=== PATIENT | female | born 1945 | race Caucasian/White ===

== ENCOUNTER → 2020-04-30 | Day surgery (SDC) | payer OTHER | END | disposition home or self-care (01) | LOC: FMAMMOTONE 11:21 | PROVIDERS: ATTEND Internal Medicine | PROC: 0H9U3ZX Drainage of Left Breast, Percutaneous Approach, Diagnostic (ICD-10-PCS; principal; 2020-04-30) | DX: D05.12 Intraductal carcinoma in situ of left breast (principal) | CPT/HCPCS: 19081; 76098-TC-FY; 87899; 88305-TC; 88342-TC; A4648 ==

== ENCOUNTER 2022-12-16 11:23 | Inpatient (IN) | payer OTHER ==
[2022-12-16 12:30] LABS: BASO % 0.6 % (0-2.0); EOS % 0.8 % (0-4.5); HEMATOCRIT 41.6 % (32.4-45.2); HEMOGLOBIN 13.3 GM/dL (10.7-15.3); LYMPH % 15.5 % (8-40); MCH 28.9 pg (25.7-33.7); MEAN CELL VOLUME 90.4 fl (80-96); MEAN PLT VOLUME 8.7 fl (7.5-11.1); MONO % 13.9 % (3.8-10.2); NEUT % 69.2 % (42.8-82.8); PLATELET COUNT 229 10^3/uL (134-434); RDW 14.7 % (11.6-15.6)
[2022-12-16 12:39] LABS: EPI CELLS 10 /uL (0-25.1); HYALINE CASTS 1 /uL (0-3.1); URINE APPEARANCE CLOUDY; URINE BACTERIA >9,000 /uL (0-1359); URINE BILIRUBIN NEGATIVE (NEGATIVE); URINE COLOR YELLOW; URINE GLUCOSE (UA) NEGATIVE (NEGATIVE); URINE KETONE NEGATIVE (NEGATIVE); URINE LEUK ESTERASE 3+ (NEGATIVE); URINE NITRITE POSITIVE (NEGATIVE); URINE PROTEIN NEGATIVE (NEGATIVE); URINE RBC 13 /uL (0-23.9); URINE UROBILINOGEN 0.2 mg/dL (0.2-1.0); URINE WBC 967 /uL (0-25.8)
[2022-12-16 12:40] LABS: INR 1.08 (0.83-1.09); PROTHROMBIN TIME (PATIENT) 12.5 SEC (9.7-13.0)
[2022-12-16 12:43] LABS: ACTIVATED PTT 29.9 SECONDS (25.2-36.5)
[2022-12-16 13:03] LABS: POTASSIUM 4.7 mmol/L (3.5-5.1)
[2022-12-16 13:05] LABS: CALCIUM 9.9 mg/dL (8.5-10.1)
[2022-12-16 13:06] LABS: ALBUMIN 3.4 g/dl (3.4-5.0); BLOOD UREA NITROGEN 18.9 mg/dL (7-18); MAGNESIUM 2.2 mg/dL (1.8-2.4)
[2022-12-16 13:09] LABS: CREATININE 0.9 mg/dL (0.55-1.3)
[2022-12-16 13:10] LABS: BILIRUBIN,TOTAL 0.5 mg/dL (0.2-1); TOT PROT 6.7 g/dl (6.4-8.2)
[2022-12-16] MEDS ORDERED: CEFTRIAXONE 1 GM/50 ML BAG ONE (14:02)
[2022-12-16] MEDS ORDERED: SODIUM CHLORIDE 500 ML IV STA (14:52)
[2022-12-16] MEDS: OXYBUTYNIN CHLORIDE 5 MG TABLET PO SCH (21:49)
[2022-12-17] MEDS: OXYBUTYNIN CHLORIDE 5 MG TABLET PO SCH ×3 (06:48→21:10)
[2022-12-17 07:26] LABS: BASO % 0.5 % (0-2.0); EOS % 1.6 % (0-4.5); HEMATOCRIT 39.6 % (32.4-45.2); HEMOGLOBIN 12.7 GM/dL (10.7-15.3); LYMPH % 15.2 % (8-40); MCHC 32.1 g/dl (32.0-36.0); MEAN CELL VOLUME 90.4 fl (80-96); MEAN PLT VOLUME 9.2 fl (7.5-11.1); MONO % 11.1 % (3.8-10.2); NEUT % 71.6 % (42.8-82.8); PLATELET COUNT 223 10^3/uL (134-434); RBC 4.38 M/mm3 (3.60-5.2); RDW 14.8 % (11.6-15.6); WHITE BLOOD COUNT 6.4 K/mm3 (4.0-10.0)
[2022-12-17 08:00] LABS: ALBUMIN 2.9 g/dl (3.4-5.0); BLOOD UREA NITROGEN 17.1 mg/dL (7-18); CALCIUM 8.8 mg/dL (8.5-10.1)
[2022-12-17 08:03] LABS: CREATININE 0.6 mg/dL (0.55-1.3)
[2022-12-17 08:05] LABS: BILIRUBIN,TOTAL 0.4 mg/dL (0.2-1)
[2022-12-17 08:24] LABS: CHOLESTEROL 184 mg/dL (50-200)
[2022-12-17 08:25] LABS: LDL CHOLESTEROL (ONLY SJRH) 126 mg/dL (5-100)
[2022-12-17 08:27] LABS: HDL CHOLESTEROL 53 mg/dL (40-60)
[2022-12-17] MEDS: CEFTRIAXONE 1 GM in DEXTROSE 5%-WATER - 50 ML IVPB SCH (10:09)
[2022-12-17] MEDS: ENOXAPARIN NA (PORCINE) 40 MG/0.4 ML DISP.SYRIN SQ SCH (10:09)
[2022-12-17] MEDS: ATORVASTATIN CA 10 MG TABLET (FP) PO SCH (10:09)
[2022-12-17] MEDS: risperiDONE 1 MG TABLET PO SCH (10:09)
[2022-12-18] MEDS: OXYBUTYNIN CHLORIDE 5 MG TABLET PO SCH ×3 (06:27→21:45)
[2022-12-18] MEDS: risperiDONE 1 MG TABLET PO SCH (09:32)
[2022-12-18] MEDS: ATORVASTATIN CA 10 MG TABLET (FP) PO SCH (09:32)
[2022-12-18] MEDS: CEFTRIAXONE 1 GM in DEXTROSE 5%-WATER - 50 ML IVPB SCH (09:32)
[2022-12-18] MEDS: ENOXAPARIN NA (PORCINE) 40 MG/0.4 ML DISP.SYRIN SQ SCH (09:32)
[2022-12-19] MEDS: OXYBUTYNIN CHLORIDE 5 MG TABLET PO SCH ×3 (06:04→21:34)
[2022-12-19] MEDS: ATORVASTATIN CA 10 MG TABLET (FP) PO SCH (09:27)
[2022-12-19] MEDS: risperiDONE 1 MG TABLET PO SCH (09:27)
[2022-12-19] MEDS: ENOXAPARIN NA (PORCINE) 40 MG/0.4 ML DISP.SYRIN SQ SCH (09:27)
[2022-12-19] MEDS: CEFTRIAXONE 1 GM in DEXTROSE 5%-WATER - 50 ML IVPB SCH (09:27)
[2022-12-20] MEDS: SENNOSIDES 8.6MG TABLET (FP) PO SCH ×2 (01:51→21:45)
[2022-12-20] MEDS: OXYBUTYNIN CHLORIDE 5 MG TABLET PO SCH ×3 (06:18→21:45)
[2022-12-20 07:11] LABS: BASO % 0.7 % (0-2.0); EOS % 4.4 % (0-4.5); HEMATOCRIT 40.5 % (32.4-45.2); HEMOGLOBIN 13.1 GM/dL (10.7-15.3); LYMPH % 24.2 % (8-40); MCHC 32.4 g/dl (32.0-36.0); MEAN CELL VOLUME 89.8 fl (80-96); MEAN PLT VOLUME 8.7 fl (7.5-11.1); MONO % 7.7 % (3.8-10.2); PLATELET COUNT 226 10^3/uL (134-434); RBC 4.52 M/mm3 (3.60-5.2); RDW 13.9 % (11.6-15.6); WHITE BLOOD COUNT 6.7 K/mm3 (4.0-10.0)
[2022-12-20 07:36] LABS: POTASSIUM 3.9 mmol/L (3.5-5.1)
[2022-12-20 07:39] LABS: ALBUMIN 2.9 g/dl (3.4-5.0); BLOOD UREA NITROGEN 24.5 mg/dL (7-18); CALCIUM 9.1 mg/dL (8.5-10.1)
[2022-12-20 07:43] LABS: CREATININE 0.7 mg/dL (0.55-1.3)
[2022-12-20 07:44] LABS: BILIRUBIN,TOTAL 0.4 mg/dL (0.2-1); TOT PROT 6.2 g/dl (6.4-8.2)
[2022-12-20] MEDS: risperiDONE 1 MG TABLET PO SCH (09:09)
[2022-12-20] MEDS: ATORVASTATIN CA 10 MG TABLET (FP) PO SCH (09:09)
[2022-12-20] MEDS: POLYETHYLENE GLYCOL (HEALTHYLAX) 3350 17 GM PACKET PO SCH (09:10)
[2022-12-20] MEDS: ENOXAPARIN NA (PORCINE) 40 MG/0.4 ML DISP.SYRIN SQ SCH (09:10)
[2022-12-20] MEDS: CEFTRIAXONE 1 GM in DEXTROSE 5%-WATER - 50 ML IVPB SCH (09:10)
[2022-12-21] MEDS: OXYBUTYNIN CHLORIDE 5 MG TABLET PO SCH ×3 (06:43→23:38)
[2022-12-21] MEDS: CEFTRIAXONE 1 GM in DEXTROSE 5%-WATER - 50 ML IVPB SCH (09:22)
[2022-12-21] MEDS: ENOXAPARIN NA (PORCINE) 40 MG/0.4 ML DISP.SYRIN SQ SCH (09:23)
[2022-12-21] MEDS: ATORVASTATIN CA 10 MG TABLET (FP) PO SCH (09:23)
[2022-12-21] MEDS: POLYETHYLENE GLYCOL (HEALTHYLAX) 3350 17 GM PACKET PO SCH (09:24)
[2022-12-21] MEDS: risperiDONE 1 MG TABLET PO SCH (09:24)
[2022-12-21 21:29] VITALS: BMI 29.2
[2022-12-21] MEDS: SENNOSIDES 8.6MG TABLET (FP) PO SCH ×2 (23:37→23:52)
[2022-12-22] MEDS: OXYBUTYNIN CHLORIDE 5 MG TABLET PO SCH ×3 (07:37→21:33)
[2022-12-22 09:20] LABS: BASO % 0.6 % (0-2.0); HEMATOCRIT 39.7 % (32.4-45.2); LYMPH % 20.2 % (8-40); MCH 29.4 pg (25.7-33.7); MCHC 32.8 g/dl (32.0-36.0); MEAN CELL VOLUME 89.5 fl (80-96); MEAN PLT VOLUME 8.6 fl (7.5-11.1); MONO % 7.4 % (3.8-10.2); NEUT % 66.8 % (42.8-82.8); PLATELET COUNT 249 10^3/uL (134-434); RBC 4.44 M/mm3 (3.60-5.2); RDW 13.6 % (11.6-15.6); WHITE BLOOD COUNT 6.1 K/mm3 (4.0-10.0)
[2022-12-22 09:51] LABS: POTASSIUM 3.8 mmol/L (3.5-5.1)
[2022-12-22] MEDS: risperiDONE 1 MG TABLET PO SCH (09:57)
[2022-12-22] MEDS: ENOXAPARIN NA (PORCINE) 40 MG/0.4 ML DISP.SYRIN SQ SCH (09:57)
[2022-12-22] MEDS: ATORVASTATIN CA 10 MG TABLET (FP) PO SCH (09:57)
[2022-12-22] MEDS: POLYETHYLENE GLYCOL (HEALTHYLAX) 3350 17 GM PACKET PO SCH (09:57)
[2022-12-22 09:58] LABS: ALBUMIN 3.2 g/dl (3.4-5.0); BLOOD UREA NITROGEN 15.6 mg/dL (7-18)
[2022-12-22] MEDS ORDERED: CEFTRIAXONE 1 GM in DEXTROSE 5%-WATER - 50 ML IVPB SCH (10:00)
[2022-12-22 10:02] LABS: CREATININE 0.7 mg/dL (0.55-1.3)
[2022-12-22 10:03] LABS: BILIRUBIN,TOTAL 0.6 mg/dL (0.2-1); TOT PROT 6.5 g/dl (6.4-8.2)
[2022-12-22] MEDS: AMOX TR/POT CLAV 500MG/125MG TABLETS (FP) PO SCH (18:11)
[2022-12-22] MEDS: SENNOSIDES 8.6MG TABLET (FP) PO SCH (21:33)
[2022-12-23] MEDS: OXYBUTYNIN CHLORIDE 5 MG TABLET PO SCH ×3 (05:58→21:32)
[2022-12-23] MEDS: AMOX TR/POT CLAV 500MG/125MG TABLETS (FP) PO SCH ×2 (08:49→17:59)
[2022-12-23] MEDS: ENOXAPARIN NA (PORCINE) 40 MG/0.4 ML DISP.SYRIN SQ SCH (10:29)
[2022-12-23] MEDS: ATORVASTATIN CA 10 MG TABLET (FP) PO SCH (10:30)
[2022-12-23] MEDS: risperiDONE 1 MG TABLET PO SCH (10:30)
[2022-12-23] MEDS: POLYETHYLENE GLYCOL (HEALTHYLAX) 3350 17 GM PACKET PO SCH (10:31)
[2022-12-23] MEDS: SENNOSIDES 8.6MG TABLET (FP) PO SCH (21:32)
[2022-12-24] MEDS: OXYBUTYNIN CHLORIDE 5 MG TABLET PO SCH ×3 (05:18→21:24)
[2022-12-24] MEDS: ATORVASTATIN CA 10 MG TABLET (FP) PO SCH (09:23)
[2022-12-24] MEDS: ENOXAPARIN NA (PORCINE) 40 MG/0.4 ML DISP.SYRIN SQ SCH (09:23)
[2022-12-24] MEDS: POLYETHYLENE GLYCOL (HEALTHYLAX) 3350 17 GM PACKET PO SCH ×2 (09:23→10:30)
[2022-12-24] MEDS: AMOX TR/POT CLAV 500MG/125MG TABLETS (FP) PO SCH ×2 (09:24→17:18)
[2022-12-24] MEDS: risperiDONE 1 MG TABLET PO SCH (09:24)
[2022-12-24] MEDS: SENNOSIDES 8.6MG TABLET (FP) PO SCH (21:24)
[2022-12-25] MEDS: OXYBUTYNIN CHLORIDE 5 MG TABLET PO SCH ×3 (05:14→21:36)
[2022-12-25] MEDS: AMOX TR/POT CLAV 500MG/125MG TABLETS (FP) PO SCH ×2 (08:15→17:28)
[2022-12-25] MEDS: POLYETHYLENE GLYCOL (HEALTHYLAX) 3350 17 GM PACKET PO SCH (10:04)
[2022-12-25] MEDS: risperiDONE 1 MG TABLET PO SCH (10:04)
[2022-12-25] MEDS: ENOXAPARIN NA (PORCINE) 40 MG/0.4 ML DISP.SYRIN SQ SCH (10:04)
[2022-12-25] MEDS: ATORVASTATIN CA 10 MG TABLET (FP) PO SCH (10:04)
[2022-12-25] MEDS: SENNOSIDES 8.6MG TABLET (FP) PO SCH (21:38)
[2022-12-26] MEDS: OXYBUTYNIN CHLORIDE 5 MG TABLET PO SCH ×2 (06:23→13:31)
[2022-12-26] MEDS: AMOX TR/POT CLAV 500MG/125MG TABLETS (FP) PO SCH ×2 (08:04→18:06)
[2022-12-26] MEDS: risperiDONE 1 MG TABLET PO SCH (09:36)
[2022-12-26] MEDS: ENOXAPARIN NA (PORCINE) 40 MG/0.4 ML DISP.SYRIN SQ SCH (09:36)
[2022-12-26] MEDS: ATORVASTATIN CA 10 MG TABLET (FP) PO SCH (09:36)
[2022-12-26] MEDS: POLYETHYLENE GLYCOL (HEALTHYLAX) 3350 17 GM PACKET PO SCH (09:37)
[2022-12-26 18:23] VITALS: BP 130/78; PULSE 85; RESP 18; TEMP 97.2
== END 2022-12-26 18:23 | disposition home health service (06) | DRG 690 ==
LOC: JER 11:23 → JERBED 14:44 → OBSVTOIN 16:43 → J4W 19:19 → J5S 12-21 18:54
PROVIDERS: ADMIT Internal Medicine; ATTEND Internal Medicine
DX: N39.0 Urinary tract infection, site not specified (principal); J98.11 Atelectasis; R55 Syncope and collapse; E78.5 Hyperlipidemia, unspecified; N32.81 Overactive bladder; I10 Essential (primary) hypertension; B96.20 Unspecified Escherichia coli [E. coli] as the cause of diseases classified elsewhere
CPT/HCPCS: 0241U-QW; 36415; 70450-TC; 71045-TC-FY; 71046-TC-FY; 71275-TC; 72125-TC; 72170-TC-FY; 80053; 80061; 81003; 82550; 82553; 83036; 83735; 84436; 84443; 84484; 85025; 85610; 85730; 87086; 87186; 93005; 93010; 93306-TC; 93880-TC; 94761; 97116-GP; 97162-GP; 99285-25; G0378; Q9967

== ENCOUNTER 2023-05-12 19:24 | Emergency (ER) | payer OTHER ==
[2023-05-12 19:54] VITALS: BMI 32.5
[2023-05-12] MEDS ORDERED: ACETAMINOPHEN 325 MG TABLET (FP) ONE (20:31)
[2023-05-12] MEDS: ACETAMINOPHEN 325 MG TABLET (FP) PO ONE (20:42)
[2023-05-12 20:47] LABS: BASO % 0.2 % (0-2.0); EOS % 0.6 % (0-4.5); HEMOGLOBIN 13.9 GM/dL (10.7-15.3); LYMPH % 9.5 % (8-40); MCH 29.5 pg (25.7-33.7); MCHC 33.1 g/dl (32.0-36.0); MEAN PLT VOLUME 9.4 fl (7.5-11.1); NEUT % 85.7 % (42.8-82.8); PLATELET COUNT 219 10^3/uL (134-434); RBC 4.72 M/mm3 (3.60-5.2); RDW 14.3 % (11.6-15.6); WHITE BLOOD COUNT 11.3 K/mm3 (4.0-10.0)
[2023-05-12 21:02] LABS: POTASSIUM 4.3 mmol/L (3.5-5.1)
[2023-05-12 21:04] LABS: CALCIUM 9.9 mg/dL (8.5-10.1)
[2023-05-12 21:05] LABS: ALBUMIN 3.4 g/dl (3.4-5.0)
[2023-05-12 21:07] LABS: INR 1.02 (0.83-1.09); PROTHROMBIN TIME (PATIENT) 11.8 SEC (9.7-13.0)
[2023-05-12 21:09] LABS: ACTIVATED PTT 28.6 SECONDS (25.2-36.5)
[2023-05-12 21:10] LABS: BILIRUBIN,TOTAL 0.4 mg/dL (0.2-1)
[2023-05-13 08:01] VITALS: BP 139/70; PULSE 72; RESP 14; TEMP 98.3
== END 2023-05-13 08:35 | disposition home or self-care (01) ==
LOC: JER 19:24
DX: S09.90XA Unspecified injury of head, initial encounter (principal); W10.9XXA Fall (on) (from) unspecified stairs and steps, initial encounter
CPT/HCPCS: 36415; 70450-TC; 72125-TC; 73562-TC-LT-FY; 73562-TC-RT-FY; 73590-TC-LT-FY; 73590-TC-RT-FY; 80053; 84484; 85025; 85610; 85730; 86850; 86900; 86901; 93005; 93010; 99285-25